=== PATIENT | female | born 1980 | race Caucasian/White ===

== ENCOUNTER 2017-02-07 12:32 | Outpatient (CLI) | payer MEDICAID ==
[~2017-02-07] VITALS: Ht 137.2 cm; Wt 61.3 kg
[2017-02-07 12:46] VITALS: Ht 137.2 cm; Wt 61.3 kg
[2017-02-07 12:47] VITALS: BP 103/60; PULSE 88; RESP 18
--- NOTE | 2017-02-07 13:48 | RADRPT ---
PROCEDURE: US OB AND ULTRASOUND CERVIX. CLINICAL INDICATION: Size and dates TECHNIQUE: Multiple sonographic images of the pelvis and gravid uterus were obtained. The images were reviewed on a PACS workstation. Transvaginal images of the cervix were also obtained. COMPARISON: No prior studies are available for comparison. FINDINGS: The cervix is closed with a length of 3.7 cm. There is a single viable intrauterine gestation. Cardiac activity is present with 152 beats per min juli. There is a breech presentation. The placenta is posterior. There is no evidence for an abruption or placenta previa. Measurements were made in order to determine age. The results are as follows: BPD =6.7 cm HC =23.8 cm AC =21.1 cm FL =4.5 cm Estimated gestational age of approximately 25 weeks and 6 days based on ultrasound measurements. The estimated date of delivery is 05/17/17, based on ultrasound measurements. The EFW = 801 g. The anatomy is not well seen. RPTAT: AA IMPRESSION: Single viable intrauterine gestation of approximately 25 weeks and 6 days based on ultrasound measu rements. .Earnest Ashraf MD, Date Time Electronically viewed and signed by .Earnest Ashraf MD, on 02/07/2017 13:48 .S/
--- NOTE | 2017-02-07 14:48 | CONS ---
Date/Time of Note Date/Time of Note DATE: 02/07/17 TIME: 14:38 Consultation Date/Type/Reason Admit Date/Time February 07, 2017 OB triage consult Reason for Consultation This patient is 36 years old 6 para 6 living 6 with 5 previous vaginal delivery . Went to their clinic for the first time during this due to vaginal bleeding started 2 days ago . . She was referred directly referred to us for evaluation and management of this vaginal bleeding She denies any sexual intercourse in the past 48 hours she says that this bleeding started lipid more than 24 hours ago. No complaint of pain she had no complications during her past 5 deliveries according to her On examination her vital signs appears to be normal blood pressure 103/60 pulse rate 88 respiration 10 temperature 96.0 On physical exam her ear nose throat appear to be normal neck is normal no neck vein distention no thyromegaly no lymph node enlargement anywhere in the body Chest is clear to auscultation Abdomen is soft no evidence of contractions heart tone is normal no decelerations fairly good accelerations on pelvic exam which was which was done with caution there was a slight bleeding cervix was closed thick no evidence of rupture of membranes extremities were normal no edema no varicosities Knee-jerk reflex was negative Hx of Present Illness On lab studies her blood type is O Rh+ on ultrasound study there is a single viable intrauterine gestation with a heartbeat of 152 in breech presentation the cervical length is 3.7 cm estimated gestational age approximately 25 weeks and 6 days on this ultrasound study. Estimated weight was 801 g Placenta was posterior with no evidence of abruption or placenta previa Instruction patient was discharged home with instruction not to have intercourse at least for a week and to return to the clinic immediately if again heavy bleeding. She is advised to continue her care in her clinic Constitutional: No chills, No diaphoresis, No disoriented, No febrile, No improved, No no complaints, No other, No poor po, No requiring IVF, No requiring O2 Eyes: No discharge, No no complaints, No other, No pain, No redness, No visual change ENT: discharge, No bleeding, No congestion, No dysphagia, No no complaints, No other, No pain , No sore throat Respiratory: No cough, No no complaints, No other, No pain, No pleuritic pain, No shortness of breath, No sputum, No wheezing Cardiovascular: No chest pain, No edema, No lightheadedness, No no complaints, No orthopenea, No other, No palpitations, No paroxysmal nocturnal dyspnea Gastrointestinal: other (Slight vaginal bleeding cervix was closed posterior and thick), No blood, No constipation, No decreased appetite, No diarrhea, No flatus, No nausea, No no complaints, No pain, No passing stool, No vomiting Genitourinary: No bleeding, No discharge, No dysuria, No flank pain, No hematuria, No no complaints, No other Musculoskeletal: No back pain, No bone/joint pain, No neck pain, No no complaints, No other, No restricted range of motion, No swelling Skin: other (Knee-jerk reflex was normal), No bruising, No erythema, No laceration, No no complaints, No pruritis, No rash, No skin lesions Neurologic: No confusion, No dizziness, No focal-weakness, No headache, No no complaints, No other, No seizure, No syncope Endocrine: No dry skin, No no complaints, No other, No polydypsia, No polyuria , No temp intolerance Lymphatic: No adenopathy, No lymphadema, No no complaints, No other, No tender nodes Social History Smoking Status: Never smoker Exam/Review of Systems Vital Signs Vitals Vital Signs Date Time Temp Pulse Resp B/P Pulse Ox O2 Delivery O2 Flow Rate FiO2 02/07/17 12:47 98.0 88 18 103/60 Room Air NED PANTOJA MD Feb 07, 2017 14:48
--- NOTE | 2017-02-07 15:13 | TRIAGE ---
OB Triage Datetime Report Generated by CPN: 02/07/2017 15:12 Datetime: 02/07/2017 14:32 Stage of : OB Triage Datetime: 02/07/2017 13:58 Labor Evaluation Frequency: 0 Monitor Mode: External Resting Tone [place]: Relaxed Heart Rate FHR Baseline Rate: 145 Monitor Mode: Internal Scalp Electrode Variability: Moderate 6-25 bpm Decelerations: None Category: Category I Pain Assessment Pain Scale: 0 Pain Presence: None/Denies Pain Type: N/A Pain Goal: 3 Pain Relief Measures: Comfort Measures Datetime: 02/07/2017 12:59 Labor Evaluation Frequency: 2-5 Monitor Mode: External Duration (sec)2399: 50-70 Quality: Mild Pattern: Normal: <= 5 Contractions in 10 Minutes Resting Tone [place]: Relaxed Heart Rate FHR Baseline Rate: 140 Monitor Mode: External US Variability: Moderate 6-25 bpm Accelerations: 15X15 Decelerations: None Category: Category I Pain Assessment Pain Scale: 0 Pain Presence: None/Denies Pain Type: N/A Pain Goal: 4 Pain Assessment Comments: PT STATS SHE HAS NO PAIN AND DOES NOT FEEL ANY CONTRACTIONS Datetime: 02/07/2017 12:54 Assessment Type: Admission Assessment EGA: 25.6 Maternal Assessment Level of Consciousness: Fully Conscious DTR's/Clonus: DTRs 2+; No Clonus Headache: Denies Blurred Vision: No Respiratory Effort: Unlabored; Regular Rhythm; Equal Expansion Breath Sounds, Left: Clear and Equal Breath Sounds, Right: Clear and Equal Nausea/Vomiting: Denies RUQ Epigastric Pain: Denies Lower Extremities Edema: None Degree: None Upper Extremities Edema: None Degree: None Facial Edema: None Fall Risk Assessment History of Falling: (0) No Secondary Diagnosis: (0) No Ambulatory Aid: (0) Bedrest/Nurse Assist IV Therapy: (0) No Gait: (0) Normal/Bedrest/Immobile Mental Status: (0) Oriented to Own Ability Fall Score: 0 Fall Risk Score Definition: No Risk: No action required Datetime: 02/07/2017 12:50 Time of Arrival: 02/07/2017 12:29 Arrived By: Ambulatory Arrived From: Office Chief Complaint: VAGINAL BLEEDING FOR 2 DAYS Movement: Present Contractions: Denies/Absent Rupture of Membranes: Denies Vaginal Bleeding: None Vaginal Discharge: Present Recent Sexual Intercouse: Denies Abdominal Trauma: Not Applicable Patient Complaints: Other Time Provider Notified: 02/07/2017 12:40 Provider Notified: DR PANTOJA Initial Plan: NST, EFW, CERVICAL LENGHT
== END 2017-02-07 14:45 | disposition home or self-care (01) ==
LOC: OBT 12:32 → L-D 12:34 → OBT 14:45
PROVIDERS: ATTEND Obstetrics & Gynecology
DX: O46.92 Antepartum hemorrhage, unspecified, second trimester (principal); O09.522 Supervision of elderly multigravida, second trimester; Z3A.25 25 weeks gestation of pregnancy
CPT/HCPCS: 36415; 76815; 76817; 86900; 86901; Z7500; G0463